=== PATIENT | female | born 2005 | race Caucasian/White ===

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

== ENCOUNTER → 2024-05-27 13:07 | Outpatient (BNVA) | payer OTHER, SELFPAY | PROVIDERS: PCP Internal Medicine ==

== ENCOUNTER 2025-05-12 12:48 | Emergency (ER) | payer OTHER, SELFPAY ==
[2025-05-12 13:01] VITALS: BP 142/84; PULSE 81; RESP 16; TEMP 36.6; O2SAT 100; BMI 21.6
--- NOTE | 2025-05-12 13:04 | ED.GENADULT ---
HPI - General Adult General Chief complaint: Urogenital-Female Stated complaint: blood in urine Time Seen by Provider: 05/12/25 15:05 Source: patient, RN notes reviewed and old records reviewed Mode of arrival: ambulatory Limitations: no limitations History of Present Illness ED Provider: DL Dodd HPI narrative: 19-year-old female without significant medical history presents to the ED due to 2 days of painful urination, increased urinary frequency, with 1 day of visual blood in the urine and lower abdominal pain. Reports last menstrual period was 05/03/2025 and was normal in blood volume and duration for her. Denies increased vaginal discharge, nausea, vomiting, fevers, chills. MD complaint: dysuria, blood in urine. Related Data Previous Rx's ?Medication ?Instructions ?Recorded cefuroxime axetil 500 mg tablet 500 mg PO BID 5 days #10 tabs 05/12/25 Allergies Allergy/AdvReac Type Severity Reaction Status Date / Time No Known Allergies Allergy Verified 05/12/25 13:03 Review of Systems Review of Systems: CONST: Negative for fever, body aches and chills. HENT: Negative for neck pain/stiffness, headache, congestion, sore throat, swelling. EYES: Negative for discharge/pain or vision changes. RESP: Negative for cough/hemoptysis and shortness of breath. CV: Negative chest pain, difficulty breathing, palpitations. ABD: Negative nausea, vomiting. POS lower abd pain. : Negative blood in stool. POS increased urinary frequency with hematuria MUSC: Negative for muscle aches, edema. SKIN: Negative rash, lesions/sores. NEURO: Negative headache, dizziness, weakness. Yes all other systems are reviewed and are negative [facility] Social History Social History Smoked in Last 30 Days: No Use of substances other than those prescribed or required for medical reasons: No Advance Directives: No Advance Directives Information Provided: No Do you have a plan to hurt others: No Plan Patient : No Physical Exam ED Vital Signs: Vital Signs - 24 hr 05/12/25 13:01 05/12/25 15:18 Temperature 97.9 F Pulse Rate 81 80 Respiratory Rate 16 18 Blood Pressure 142/84 H 129/75 Pulse Oximetry 100 100 Oxygen Delivery Method Room Air Room Air BMI result Body Mass Index 21.6 GENERAL APPEARANCE: ?AxOx4, generally well-appearing, no acute distress. HEENT: ?NC, AT. MMM. EOMI, clear conjunctiva, oropharynx clear. NECK: ?Supple without lymphadenopathy.? No stiffness or restricted ROM. HEART:? Normal rate and regular rhythm, normal S1/S2, no m/r/g LUNGS:? CTAB, moving air well. No crackles or wheezes are heard. ABDOMEN: ?Soft, nondistended, no rigidity, negative Ramsey's sign, no rebound tenderness, mild TTP of suprapubic region BACK: No CVAT, no obvious deformity. EXTREMITIES: ?Without cyanosis, clubbing or edema. NEUROLOGICAL: ?Grossly nonfocal. Alert and oriented, moving all 4 extremities. Observed to ambulate with normal gait. Skin: ?Warm and dry without any rash. Course Course Course Narrative: Rapid medical examination performed in triage by Keila Camilo PA-C. Patient is a 19 year old assigned female at presenting to the emergency department with blood in urine and dysuria. Detailed physical exam and review of systems are deferred to the product manager financial services. Labs ordered. Patient placed back in the waiting room pending room availability and results. Medical Decision Making Medical Decision Making MDM Narrative: 19-year-old female without significant medical history presents to the ED due to 2 days of painful urination, increased urinary frequency, with 1 day of visual blood in the urine and lower abdominal pain. Reports last menstrual period was 05/03/2025 and was normal in blood volume and duration for her. Denies increased vaginal discharge, nausea, vomiting, fevers, chills. Patient states she is concerned for STI but does not have increased vaginal discharge. Patient states she does not want to be tested in the department today as she does not want to wait. I counseled patient [facility] she would like to be tested. She states she will follow up with them tomorrow and would like to go home at this time. Labs reveal leukocytosis of 11.4, H&H stable, no electrolyte abnormality, beta hCG negative UA reveals 3+ urine blood, 3+ leukocyte esterase, 11-20 urine RBCs, >50 WBC, with 0-2 squamous epithelial cells and no urine bacteria. Patient with 2 days of increased urinary frequency, dysuria, 1 day of hematuria, and lower abdominal pain. Patient afebrile, without CVA tenderness. UA consistent with UTI. We will treat with 5 day course of cefuroxime. I counseled patient that she should follow up with [facility] if she has concerns for STIs as she did not want to be tested in the department today. Patient states she has primary care provider that she can follow up with as well. Patient denies increased vaginal discharge at this time. I will provide patient with information [facility]. Differential Diagnosis Differential Diagnoses: The differential diagnosis associated with the presentation includes Pyelonephritis UTI STI Admission/Observation Consideration of admission/observation: Escalation of care including admission/observation considered Lab Data [facility] Lab Attestation statement: I reviewed the patient's lab results. 05/12/25 13:26 05/12/25 13:26 Labs: Lab Results 05/12/25 Range/Units 13:26 WBC 11.4 H (4.8-10.8) X10*3/uL RBC 4.70 (4.20-5.50) X10*6/uL Hgb 11.9 L (12.0-16.0) g/dl Hct 37.7 (37.0-47.0) % MCV 80.2 (80.0-98.0) fL MCH 25.3 L (27.0-33.0) pg MCHC 31.6 (31.0-35.0) g/dl RDW 14.6 (11.0-16.0) % Plt Count 389 (160-400) X10*3/uL MPV 8.8 L (9.4-12.3) fL Immature Gran % (Auto) 0.3 (0.0-0.4) % Neut % (Auto) 69.2 (45-73) % Lymph % (Auto) 21.7 (20-40) % [place] % (Auto) 8.2 (2-11) % Eos % (Auto) 0.3 (0-4) % Baso % (Auto) 0.3 (0-2) % Lymph # (Auto) 2.5 (1.2-4.9) X10*3/uL [place] # (Auto) 0.9 (0.1-1.2) X10*3/uL Eos # (Auto) 0.0 (0.0-0.4) X10*3/uL Baso # (Auto) 0.0 (0.0-0.2) X10*3/uL Abs Immat Gran (auto) 0.03 (0.00-0.03) X10*3/uL Absolute Neuts (auto) 7.9 (2.0-8.3) x10*3/uL Absolute Nucleated RBC 0.000 (0.0-0.012) X10*3/uL Nucleated RBC % (auto) 0.0 (0.0-0.2) /100WBC Sodium 140 (135-145) mmol/L Potassium 3.9 (3.3-5.1) mmol/L Chloride 106 (96-108) mmol/L Carbon Dioxide 25 (22-29) mmol/L Anion Gap 13 (12-20) BUN 12 (9-16) mg/dL Creatinine 0.58 (0.5-1.4) mg/dL Estim Creat Clear Calc 104.6 Estimated GFR > 60 Random Glucose 86 (60-115) mg/dL Calcium 9.4 (8.4-10.2) mg/dL Total Bilirubin 0.4 (0.0-1.0) mg/dL AST 24 (5-31) U/L ALT 12 (0-31) U/L Alkaline Phosphatase 68 (39-117) U/L Total Protein 7.6 (6.5-8.0) g/dL Albumin 4.7 (3.5-5.0) g/dL Beta HCG, Quant < 2 mIU/mL Urine Color Yellow Urine Appearance Clear Urine pH 7.0 (5.0-9.0) Ur Specific [place] 1.010 (1.005-1.025) Urine Protein Negative (Neg-Trace) mg/dL Urine Glucose (UA) Negative (Negative) mg/dL Urine Ketones Negative (Negative) mg/dL Urine Blood Large (3+) H (Negative) Urine Nitrite Negative (Negative) Ur Leukocyte Esterase Large (3+) H (Negative) Urine RBC 11-20 H (0-2) /HPF Urine WBC >50 H (0-5) /HPF Ur Squamous Epith Cells 0-2 (0-2) /HPF Urine Bacteria None Seen (None Seen) Hyaline Casts 0-2 (0-2) /LPF External Record Review External record reviewed: Inpatient record, Office record and Outpatient record Chronic Conditions Patient?s care impacted by: Other (No known medical history) Discharge Plan Discharge Clinical Impression: Urinary tract infection Patient Disposition: Home, Self-Care Additional Instructions: You were evaluated in the ED today due to increased urinary frequency, painful urination, and blood in the urine. Your blood work today showed an increased white blood cell count of 11.4. Your urinalysis was positive for blood with evidence of infection. You stated you were concerned for STIs however did not want to be tested in the department today. You will be prescribed a 5 day course of cefuroxime which is an antibiotic to cover for UTI. Please complete entire course of medication even if your symptoms resolve. I encourage [facility]/or your primary care doctor for further evaluation and testing for sexually transmitted infections. Please return to the emergency department if you experience fevers over 100.4?, worsening lower abdominal pain, worsening pain with urination, inability to urinate, or any new/worsening/concerning symptoms. Prescriptions: New cefuroxime axetil 500 mg tablet 500 mg PO BID 5 Days Qty: 10 0RF Print Language: Welsh
[2025-05-12 13:32] LABS: MANUAL DIFF FLAG NO
[2025-05-12 13:34] LABS: Appearance Urine Clear; Glucose Urine UA Negative (Negative); PH 7.0 (5.0-9.0); Specific Gravity - Urine 1.010 (1.005-1.025); UMIC TRIGGER UACC YES
[2025-05-12 13:35] LABS: Hematocrit 37.7 % (37.0-47.0); Hemoglobin 11.9 g/dl (12.0-16.0); Imm Gran Abs Auto 0.03 X10*3/uL (0.00-0.03); Imm Gran Pct Auto 0.3 % (0.0-0.4); Lymphocytes Absolute Auto 2.5 X10*3/uL (1.2-4.9); Mean Corpuscular HGB Conc 31.6 g/dl (31.0-35.0); Mean Corpuscular Hemoglobin 25.3 pg (27.0-33.0); Mean Corpuscular Volume 80.2 fL (80.0-98.0); NRBC Abs Auto 0.000 X10*3/uL (0.0-0.012); NRBC Pct Auto 0.0 /100WBC (0.0-0.2); Platelet Count 389 X10*3/uL (160-400); Red Blood Count 4.70 X10*6/uL (4.20-5.50); White Blood Count 11.4 X10*3/uL (4.8-10.8)
[2025-05-12 13:36] LABS: UACC Culture Trigger YES
[2025-05-12 13:57] LABS: Alanine Aminotransferase 12 U/L (0-31); Albumin Level 4.7 g/dL (3.5-5.0); Alkaline Phosphatase 68 U/L (39-117); Anion Gap 13 (12-20); Aspartate Amino Transferase 24 U/L (5-31); Blood Urea Nitrogen 12 mg/dL (9-16); Calcium 9.4 mg/dL (8.4-10.2); Carbon Dioxide 25 mmol/L (22-29); Chloride 106 mmol/L (96-108); Creatinine Clr Calc Pharmacy 104.6; Estimated Glomerular Filt Rate > 60; Potassium 3.9 mmol/L (3.3-5.1); Sodium 140 mmol/L (135-145); Total Protein 7.6 g/dL (6.5-8.0)
[2025-05-12 15:18] VITALS: BP 129/75; PULSE 80; RESP 18; O2SAT 100
--- NOTE | 2025-05-12 15:23 | PC.NURSE ---
19 F presents to ED with lower abdominal pain since yesterday and painful urination with some bleed in urine, pink tint per pt. Pt also states shes had some dizziness x 1 week. A+Ox4, calm, cooperative, ambulatory. Pt denies any CP or SOB. RR even and unlabored,
[2025-05-12 17:01] VITALS: BP 103/68; PULSE 79; RESP 18; TEMP -17.7; TEMP 0; O2SAT 100
== END 2025-05-12 17:02 | disposition home or self-care (01) ==
PROVIDERS: Physician Assistant Medical; Emergency Provider Emergency Medicine; PCP Internal Medicine
DX: N39.0 Urinary tract infection, site not specified (principal); R31.9 Hematuria, unspecified; R30.0 Dysuria; R35.0 Frequency of micturition; Z79.899 Other long term (current) drug therapy
CPT/HCPCS: 36415; 80053; 81001; 84702; 85025; 87086; 87088; 87186; 99283; 99284

== ENCOUNTER 2025-05-31 11:01 | Observation (INO) | payer OTHER, SELFPAY ==
--- NOTE | ~2025-05-31 | CT_ITS ---
CLINICAL HISTORY: L flank pain hx UTI ?pyelo CT abdomen and pelvis with contrast Comparison: None provided Findings: No consolidation or effusion. There is mild heterogeneity involving a portion of the upper pole of the right kidney. No calculus or hydronephrosis. Remaining abdominal organs are unremarkable. There are no calcified gallstones. There is moderate fecal retention within the colon. Desiccated appearance of fecal material within the distal colon and rectum. No bowel edema or evidence of bowel obstruction. Pelvic contents unremarkable. Normal appendix. No acute fracture. IMPRESSION: 1. Could consider mild pyelonephritis of the left kidney. 2. Moderate fecal retention within the colon with an appearance suggesting likely constipation. This document has been electronically signed by: Rekha Angel MD on 05/31/2025 15:03:24
[2025-05-31 11:05] VITALS: BP 148/72; PULSE 92; RESP 22; TEMP 36.6; O2SAT 100; BMI 16.8
--- NOTE | 2025-05-31 11:06 | ED_ITS ---
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 Patient was evaluated at our facility on 05/12/2025 due to painful urination and increased urinary frequency. She was diagnosed with a urinary tract infection and prescribed a 5 day course of Ceftin which she has since completed. She reports resolution of urinary symptoms. Now endorsing left flank pain x4 days. No radiation. She has trialing Tylenol at home without relief. No injury or trauma. LMP 05/04/25. Denies fever but endorses chills. Denies nausea or vomiting, constipation, diarrhea, vaginal bleeding or discharge. Related Data Allergies Allergy/AdvReac Type Severity Reaction Status Date / Time No Known Allergies Allergy Verified 05/31/25 11:09 Review of Systems 2 Review of Systems: Yes all other systems are reviewed and are negative PMFSH Past Medical History Attestation statement: The following information was validated with the patient. Source: old records reviewed and nursing notes reviewed Social History Social History Advance Directives: No Advance Directives Information Provided: Yes Patient : No Physical Exam ED Vital Signs: Vital Signs - 24 hr 05/31/25 11:05 Temperature 97.8 F Pulse Rate 92 Respiratory Rate 22 H Blood Pressure 148/72 H Pulse Oximetry 100 Oxygen Delivery Method Room Air BMI result Body Mass Index 16.8 hypertensive, tachcyardic, afebrile General: Well appearing, in no acute distress. Skin: Warm, dry, intact. No rashes or lesions. Head: Normocephalic, atraumatic. EENT: Hearing is intact b/l. Conjunctiva clear. Sclera is anicteric. PERRLA. EOM intact. Moist mucous membranes.? Cardiac: Chest wall symmetric. RRR Lungs: Normal respiratory effort without accessory muscle use. CTA bilaterally Abdomen: Soft, non-tender, non-distended. No rebound tenderness or guarding. Positive BS x4. +L CVAT Back: No midline spinous or paraspinal tenderness. No step off deformity. Ext: Upper and lower extremities atraumatic, without tenderness, deformity, swelling or erythema Neuro: AOx3. Normal speech Course Course Course Narrative: This is a rapid medical exam performed by Karen Wynn NP: Additional HPI, ROS, PE not included below will be deferred to primary provider. Patient is a 19y/o F presenting with complaint of back pain since Mon. Recently seen at treated for a UTI. Completed full course of abx. +LCVAT Plan: labs, UA Reevaluation(s) Reevaluation #1: CBC with leukocytosis to 11.1. No left shift. H&H stable. Chemistry without acute electrolyte abnormality requiring intervention. No ELBA. Liver function WNL. Lactic WNL. Urine showing trace blood, small leukocyte esterase, 11 to 20 WBCs, 1+ bacteria, 0-2 squamous epithelial cells consistent with UTI. However, improving when compared to UA on 05/12/2025. CT NG undetectable. CT abdomen/pelvis showing mild pyelonephritis of left kidney along with constipation. no bowel obstruction. > patient medicated with toradol and IVF with good affect however states pain is returning - will trial IV tylenol. > patient has now failed outpatient treatment of UTI with progression to pyelonephritis - discussed with hospitalist who has accepted patient admission to medicine. patient is agreeable with admission. she does not meet criteria for sepsis at this time. Medications Administered Generic Name Dose Route Start Last Admin Trade Name Freq PRN Reason Stop Dose Admin Ceftriaxone Sodium 1 gm 05/31/25 18:00 05/31/25 17:55 Ceftriaxone Sodium 1 Gm Vial IVPUSH 1 gm Q24H SONNY Administration Lactated Ringer's 1,000 mls @ 100 mls/hr 05/31/25 17:15 05/31/25 17:33 Lr IVCONT 100 mls/hr .Q10H SONNY Administration Polyethylene Glycol 17 gm 05/31/25 18:00 05/31/25 17:59 Polyethylene Glycol 3350 17 Gm Powd.Pack PO Not Given DAILY SONNY Discontinued Medications Generic Name Dose Route Start Last Admin Trade Name Freq PRN Reason Stop Dose Admin Sodium Chloride 1,000 mls @ 999 mls/hr 05/31/25 12:30 05/31/25 13:27 Ns IV 05/31/25 13:30 Infused .Q1H1M SONNY Infusion Acetaminophen 1,000 mg in 100 mls @ 400 mls/hr 05/31/25 15:43 05/31/25 16:04 Ofirmev IV 05/31/25 15:57 Infused ONCE ONE Infusion Iohexol 85 ml 05/31/25 12:38 05/31/25 12:39 Iohexol 350 Mg/Ml 100 Ml Infus..Btl IV 05/31/25 12:39 85 ml ONCE ONE Administration Ketorolac Tromethamine 15 mg 05/31/25 12:18 05/31/25 12:26 Ketorolac Tromethamine 15 Mg/Ml Vial IVPUSH 05/31/25 12:19 15 mg ONCE ONE Administration Medical Decision Making Medical Decision Making [facility] Narrative: 19 year old female presents to the ED today for evaluation of left flank pain x 4 days. Mildly tachypneic. Hypertensive. Afebrile, not tachycardic. She is generally well-appearing and in no acute distress. abdomen is soft, ND/NT, no rebound or guarding, active bsx4. +left CVAT. Differential diagnosis includes UTI, nephrolithiasis, pyelonephritis, ovarian cyst, PID, lumbar v thoracic MSK sprain/strain, spasm Plan for labs, UA, imaging, and re-evalaution. Differential Diagnosis Differential Diagnoses: The differential diagnosis associated with the presentation includes As above Admission/Observation Consideration of admission/observation: Escalation of care including admission/observation considered admitted to medicine for management of pyelonephritis Consult Healthcare Provider Management of the patient was discussed with: Hospitalist (damon chamorro) Lab Data [facility] Lab Attestation statement: I reviewed the patient's lab results. As above 05/31/25 11:15 05/31/25 11:15 Labs: Lab Results 05/31/25 05/31/25 05/31/25 Range/Units 11:15 12:22 13:26 WBC 11.1 H (4.8-10.8) X10*3/uL RBC 4.84 (4.20-5.50) X10*6/uL Hgb 12.0 (12.0-16.0) g/dl Hct 39.0 (37.0-47.0) % MCV 80.6 (80.0-98.0) fL MCH 24.8 L (27.0-33.0) pg MCHC 30.8 L (31.0-35.0) g/dl RDW 14.2 (11.0-16.0) % Plt Count 450 H (160-400) X10*3/uL MPV 8.5 L (9.4-12.3) fL Immature Gran % (Auto) 0.2 (0.0-0.4) % Neut % (Auto) 62.9 (45-73) % Lymph % (Auto) 26.0 (20-40) % [place] % (Auto) 10.0 (2-11) % Eos % (Auto) 0.5 (0-4) % Baso % (Auto) 0.4 (0-2) % Lymph # (Auto) 2.9 (1.2-4.9) X10*3/uL [place] # (Auto) 1.1 (0.1-1.2) X10*3/uL Eos # (Auto) 0.1 (0.0-0.4) X10*3/uL Baso # (Auto) 0.0 (0.0-0.2) X10*3/uL Abs Immat Gran (auto) 0.02 (0.00-0.03) X10*3/uL Absolute Neuts (auto) 7.0 (2.0-8.3) x10*3/uL Absolute Nucleated RBC 0.000 (0.0-0.012) X10*3/uL Nucleated RBC % (auto) 0.0 (0.0-0.2) /100WBC Sodium 143 (135-145) mmol/L Potassium 3.7 (3.3-5.1) mmol/L Chloride 108 (96-108) mmol/L Carbon Dioxide 22 (22-29) mmol/L Anion Gap 17 (12-20) BUN 9 (9-16) mg/dL Creatinine 0.59 (0.5-1.4) mg/dL Estim Creat Clear Calc 105.8 Estimated GFR > 60 Random Glucose 92 (60-115) mg/dL Lactic Acid 0.9 (0.5-2.0) mmol/L Calcium 9.5 (8.4-10.2) mg/dL Total Bilirubin 0.6 (0.0-1.0) mg/dL AST 25 (5-31) U/L ALT 17 (0-31) U/L Alkaline Phosphatase 90 (39-117) U/L Total Protein 8.2 H (6.5-8.0) g/dL Albumin 4.9 (3.5-5.0) g/dL Beta HCG, Quant < 2 mIU/mL Urine Color Yellow Urine Appearance Clear Urine pH 7.5 (5.0-9.0) Ur Specific [place] 1.015 (1.005-1.025) Urine Protein Trace (Neg-Trace) mg/dL Urine Glucose (UA) Negative (Negative) mg/dL Urine Ketones Negative (Negative) mg/dL Urine Blood Trace H (Negative) Urine Nitrite Negative (Negative) Ur Leukocyte Esterase Small (1+) H (Negative) Urine RBC 6-10 H (0-2) /HPF Urine WBC 11-20 (0-5) /HPF Ur Squamous Epith Cells 0-2 (0-2) /HPF Urine Bacteria 1+ (None Seen) Hyaline Casts 0-2 (0-2) /LPF Ur N gonorrhoeae DNA (PCR) NOT DETECTED (Not Detect.) Ur Chlamydia DNA (PCR) NOT DETECTED (Not Detect.) Independent Interpretation I performed an independent interpretation of an: CT Scan Interpretation: ct a/p without bowel obstruction Radiology Impression Discussion of test interpretation with radiology: I have reviewed the radiologist's reading. Radiologist Impression: Procedure(s): CT abdomen pelvis w IV con Accession Number(s): [id number] cc: [facility]; Bessie Basurto~ Report Number: [id number]: Total DLP = 286.00 mGy-cm Reason for Exam: L flank pain hx UTI ?pyelo CLINICAL HISTORY: L flank pain hx UTI ?pyelo CT abdomen and pelvis with contrast Comparison: None provided Findings: No consolidation or effusion. There is mild heterogeneity involving a portion of the upper pole of the right kidney. No calculus or hydronephrosis. Remaining abdominal organs are unremarkable. There are no calcified gallstones. There is moderate fecal retention within the colon. Desiccated appearance of fecal material within the distal colon and rectum. No bowel edema or evidence of bowel obstruction. Pelvic contents unremarkable. Normal appendix. No acute fracture. IMPRESSION: 1. Could consider mild pyelonephritis of the left kidney. 2. Moderate fecal retention within the colon with an appearance suggesting likely constipation. This document has been electronically signed by: Rekha Angel MD on 05/31/2025 15:03:24 Independent Historian Clinical information obtained from an independent historian. History obtained from or confirmed by: Parent (dad) External Record Review External record reviewed: Inpatient record Prescription Management I considered prescription management with: Pain Medication and Antibiotic Social Determinants Patient?s care significantly limited by Social Determinants of Health including: Other Social Determinant of Health Critical Care Time Critical Care Time Critical Care Time: Yes Total Critical Care Time: 33 Attestation: Critical care time in the amount of 33 minutes has been provided to the patient in terms of direct patient care, frequent reevaluation, consultation with hospitalist, review and interpretation of medical data and results, and management of potentially life-threatening conditions. This is all outside of any medical procedures. Discharge Plan Discharge Clinical Impression: Pyelonephritis Patient Disposition: Admitted As Inpatient
[2025-05-31 11:20] LABS: MANUAL DIFF FLAG NO
[2025-05-31 11:22] LABS: Hematocrit 39.0 % (37.0-47.0); Hemoglobin 12.0 g/dl (12.0-16.0); Imm Gran Abs Auto 0.02 X10*3/uL (0.00-0.03); Imm Gran Pct Auto 0.2 % (0.0-0.4); Lymphocytes Absolute Auto 2.9 X10*3/uL (1.2-4.9); Mean Corpuscular HGB Conc 30.8 g/dl (31.0-35.0); Mean Corpuscular Hemoglobin 24.8 pg (27.0-33.0); Mean Corpuscular Volume 80.6 fL (80.0-98.0); NRBC Abs Auto 0.000 X10*3/uL (0.0-0.012); NRBC Pct Auto 0.0 /100WBC (0.0-0.2); Platelet Count 450 X10*3/uL (160-400); Red Blood Count 4.84 X10*6/uL (4.20-5.50); White Blood Count 11.1 X10*3/uL (4.8-10.8)
[2025-05-31 11:28] LABS: Appearance Urine Clear; Glucose Urine UA Negative (Negative); PH 7.5 (5.0-9.0); Specific Gravity - Urine 1.015 (1.005-1.025); UMIC TRIGGER UACC YES
[2025-05-31 11:38] LABS: UACC Culture Trigger YES
[2025-05-31 12:02] LABS: Alanine Aminotransferase 17 U/L (0-31); Albumin Level 4.9 g/dL (3.5-5.0); Alkaline Phosphatase 90 U/L (39-117); Anion Gap 17 (12-20); Aspartate Amino Transferase 25 U/L (5-31); Blood Urea Nitrogen 9 mg/dL (9-16); Calcium 9.5 mg/dL (8.4-10.2); Carbon Dioxide 22 mmol/L (22-29); Chloride 108 mmol/L (96-108); Creatinine Clr Calc Pharmacy 105.8; Estimated Glomerular Filt Rate > 60; Potassium 3.7 mmol/L (3.3-5.1); Sodium 143 mmol/L (135-145); Total Protein 8.2 g/dL (6.5-8.0)
[2025-05-31] MEDS: iohexoL 350 MG/ML 100 ML INFUS..BTL 85 ML IV (12:39)
[2025-05-31 15:15] LABS: CT PCR Urine NOT DETECTED (Not Detect.); NG PCR Urine NOT DETECTED (Not Detect.)
--- NOTE | 2025-05-31 16:22 | HO.NURTONUR ---
19 yr old female admitted for Pyelonophritis. Pt comes to ED with c/o L flank pain x3 days. She reports she was treated for UTI 3 weeks ago an an Urgent Care. A&Ox3 VSS, afebrile. Independent feeds and ambulation. 22g to RAC IVF and IV Toradol given in ED.
--- NOTE | 2025-05-31 16:30 | PHA.MEDREC ---
Pharmacy Consult ? Medication Reconciliation Pharmacy has completed the medication reconciliation. Pt states she isn't taking any medications at this time.
--- NOTE | 2025-05-31 17:01 | PC.NURSE ---
belongings list completed filed in pt chart
[2025-05-31] MEDS: Lactated Ringers 1,000 ML 100 ML IVCONT (17:33)
--- NOTE | 2025-05-31 17:45 | PM.IMHP ---
History of Present Illness Date of Service: 05/31/25 Attending physician on admission: Papo Ames Chief Complaint: flank pain This is a 19-year-old female who presents to the emergency department with flank pain. She states that she was diagnosed with a urinary tract infection 2 weeks ago and she was prescribed Ceftin. She completed 5 day course of Ceftin and initially her symptoms improved. This past Monday however she began having left-sided flank pain with associated chills. She denies any fever, nausea, vomiting. But due to her persistent left-sided flank pain she presented to the emergency department today. In the emergency department she was afebrile, noted to have leukocytosis of 11.1. Renal function within normal limits. Lactic acid within normal limits. CT scan of the abdomen and pelvis showing pyelonephritis of the left kidney. She will be admitted for further management. Review of Systems Review of Systems: Yes all other systems are reviewed and are negative Constitutional: Constitutional: Reports chills and Denies fever(s) Gastrointestinal: Gastrointestinal: Denies nausea and Denies vomiting PMFSH Social History Advance Directives: No Advance Directives Information Provided: Yes Patient : No Meds Allergies Allergy/AdvReac Type Severity Reaction Status Date / Time No Known Allergies Allergy Verified 05/31/25 11:09 Active Medications: Current Medications Acetaminophen (Acetaminophen 325 Mg Tablet) 650 mg PO Q6H PRN PRN Reason: Pain, Mild 1-3,fever,headache Calcium Carbonate (Calcium Carbonate 750 Mg Tab.Chew) 750 mg PO Q4H PRN PRN Reason: Heartburn Ceftriaxone Sodium (Ceftriaxone Sodium 1 Gm Vial) 1 gm IVPUSH Q24H [facility] Lactated Ringer's (Lr) 1,000 mls @ 100 mls/hr IVCONT .Q10H [facility] Last Admin: 05/31/25 17:33 Dose: 100 mls/hr Magnesium Hydroxide (Milk Of Magnesia 30 Ml Oral.Susp) 30 ml PO DAILY PRN PRN Reason: Constipation Melatonin (Melatonin 3 Mg Tablet) 6 mg PO BEDTIME PRN PRN Reason: Insomnia Morphine Sulfate (Morphine Sulfate 4 Mg/Ml Cartridge) 2 mg IVPUSH Q4H PRN; Protocol PRN Reason: Pain, Severe (Pain Scale 7-10) Sodium Chloride (0.9 % Sodium Chloride Flush 3 Ml Syringe) 3 ml IVFLUSH QSHIFT SNONY Physical Exam Vital Signs and Narrative: Vital Signs: Last Vital Signs Temp 97.8 F 05/31/25 11:05 Pulse 92 05/31/25 11:05 Resp 22 H 05/31/25 11:05 BP 148/72 H 05/31/25 11:05 Pulse Ox 100 05/31/25 11:05 O2 Del Method Room Air 05/31/25 11:05 BMI result Body Mass Index 16.8 Const: General: cooperative, comfortable, alert and awake Nutritional Appearance: average body habitus Orientation/consciousness: patient oriented x3 Resp: Effort & Inspection: normal respiratory effort and able to speak in complete sentences : Other: left CVAT Neuro: General: patient oriented x3, moves all extremities and CN's II-XI intact bilaterally Results Labs 05/31/25 11:15 05/31/25 11:15 Labs: Laboratory Results - last 24 hr 05/31/25 05/31/25 05/31/25 11:15 12:22 13:26 MCV 80.6 MCH 24.8 L MCHC 30.8 L RDW 14.2 Plt Count 450 H MPV 8.5 L Immature Gran % (Auto) 0.2 Neut % (Auto) 62.9 Lymph % (Auto) 26.0 [place] % (Auto) 10.0 Eos % (Auto) 0.5 Baso % (Auto) 0.4 Lymph # (Auto) 2.9 [place] # (Auto) 1.1 Eos # (Auto) 0.1 Baso # (Auto) 0.0 Abs Immat Gran (auto) 0.02 Absolute Neuts (auto) 7.0 Absolute Nucleated RBC 0.000 Nucleated RBC % (auto) 0.0 Anion Gap 17 Estim Creat Clear Calc 105.8 Estimated GFR > 60 Random Glucose 92 Lactic Acid 0.9 Calcium 9.5 Total Bilirubin 0.6 AST 25 ALT 17 Alkaline Phosphatase 90 Total Protein 8.2 H Albumin 4.9 Beta HCG, Quant < 2 Urine Color Yellow Urine Appearance Clear Urine pH 7.5 Ur Specific [place] 1.015 Urine Protein Trace Urine Glucose (UA) Negative Urine Ketones Negative Urine Blood Trace H Urine Nitrite Negative Ur Leukocyte Esterase Small (1+) H Urine RBC 6-10 H Urine WBC 11-20 Ur Squamous Epith Cells 0-2 Urine Bacteria 1+ Hyaline Casts 0-2 Ur N gonorrhoeae DNA (PCR) NOT DETECTED Ur Chlamydia DNA (PCR) NOT DETECTED Assessment and Plan (1) Pyelonephritis: Status: Acute Plan This is a 19-year-old female with no significant past medical history who was recently diagnosed with UTI who returns with left flank pain found to have pyelonephritis Acute pyelonephritis IV ceftriaxone Follow repeat urine cultures, blood cultures Pain control Constipation Seen on CT scan Start bowel regimen DVT prophylaxis-low risk, encourage early ambulation Quality Stroke Does the patient have a stroke diagnosis?: No VTE Prior VTE?: No VTE Risk Level:: Medical - low VTE Device Contraindication: Treatment Not Indicated VTE Drug Contraindication: Treatment Not Indicated
[2025-05-31 19:26] VITALS: BP 116/60; PULSE 71; RESP 16; TEMP 36.6; O2SAT 100
[2025-05-31 21:06] VITALS: BP 125/57; PULSE 80; RESP 18; TEMP 36.2; O2SAT 98
[2025-05-31 22:20] VITALS: BMI 19.3
[2025-06-01] VITALS (7 sets, daily range): BP systolic 109–128; BP diastolic 56–75; PULSE 69–87; RESP 16–18; TEMP 36.1–36.9; O2SAT 98–99
[2025-06-01] MEDS: Lactated Ringers 1,000 ML 100 ML IVCONT ×2 (03:35→18:04)
[2025-06-01 06:17] LABS: Hematocrit 31.9 % (37.0-47.0); Hemoglobin 9.9 g/dl (12.0-16.0); Mean Corpuscular HGB Conc 31.0 g/dl (31.0-35.0); Mean Corpuscular Hemoglobin 24.7 pg (27.0-33.0); Mean Corpuscular Volume 79.6 fL (80.0-98.0); NRBC Abs Auto 0.000 X10*3/uL (0.0-0.012); NRBC Pct Auto 0.0 /100WBC (0.0-0.2); Platelet Count 365 X10*3/uL (160-400); Red Blood Count 4.01 X10*6/uL (4.20-5.50); White Blood Count 9.2 X10*3/uL (4.8-10.8)
[2025-06-01 06:54] LABS: Anion Gap 10 (12-20); Blood Urea Nitrogen 10 mg/dL (9-16); Carbon Dioxide 25 mmol/L (22-29); Chloride 110 mmol/L (96-108); Creatinine Clr Calc Pharmacy 140.2; Estimated Glomerular Filt Rate > 60; Potassium 3.5 mmol/L (3.3-5.1); Sodium 141 mmol/L (135-145)
[2025-06-01 07:37] LABS: Calcium 8.5 mg/dL (8.4-10.2)
[2025-06-01 08:14] LABS: Iron 22 mcg/dL (30-160); Percent Iron Saturation 9 % (15-50); Total Iron Binding Capacity 257 mcg/dL (228-428); Unsaturated Iron Binding 235 ug/dL
[2025-06-01 08:30] LABS: Ferritin 8 ng/mL (10-122)
--- NOTE | 2025-06-01 10:37 | HO.PM.IMPN ---
Subjective Subjective Date of Service: 06/01/25 Interval History: Seen and examined this morning Follow-up for pyelonephritis Patient reports ongoing left-sided flank pain. Denies fever or chills Review of Systems Review of Systems: Yes all other systems are reviewed and are negative Constitutional Constitutional: Denies chills and Denies fever(s) Physical Exam Vital Signs: Vital Signs: Last Vital Signs Temp 97.4 F 06/01/25 07:52 Pulse 69 06/01/25 07:52 Resp 18 06/01/25 07:52 BP 109/56 L 06/01/25 07:52 Pulse Ox 99 06/01/25 07:52 O2 Del Method Room Air 06/01/25 07:52 BMI result Body Mass Index 19.3 Const: General: cooperative, comfortable, alert and awake Nutritional Appearance: average body habitus Orientation/consciousness: patient oriented x3 Resp: Effort & Inspection: normal respiratory effort and able to speak in complete sentences : Other: left CVAT Neuro: General: patient oriented x3, moves all extremities and CN's II-XI intact bilaterally Objective Data Active Medications Acetaminophen (Acetaminophen 325 Mg Tablet) 650 mg PO Q6H PRN PRN Reason: Pain, Mild 1-3,fever,headache Last Admin: 05/31/25 23:33 Dose: 650 mg Documented By: MEGAN Calcium Carbonate (Calcium Carbonate 750 Mg Tab.Chew) 750 mg PO Q4H PRN PRN Reason: Heartburn Ceftriaxone Sodium (Ceftriaxone Sodium 1 Gm Vial) 1 gm IVPUSH Q24H [facility] Last Admin: 05/31/25 17:55 Dose: 1 gm Documented By: LISA Docusate Sodium (Docusate Sodium 100 Mg Capsule) 100 mg PO BID [facility] Last Admin: 06/01/25 08:09 Dose: 100 mg Documented By: TREVER Lactated Ringer's (Lr) 1,000 mls @ 100 mls/hr IVCONT .Q10H [facility] Last Admin: 06/01/25 03:35 Dose: 100 mls/hr Documented By: KLAUDIA Ketorolac Tromethamine (Ketorolac Tromethamine 15 Mg/Ml Vial) 15 mg IVPUSH Q6H PRN PRN Reason: Pain, Severe (Pain Scale 7-10) Magnesium Hydroxide (Milk Of Magnesia 30 Ml Oral.Susp) 30 ml PO DAILY PRN PRN Reason: Constipation Melatonin (Melatonin 3 Mg Tablet) 6 mg PO BEDTIME PRN PRN Reason: Insomnia Morphine Sulfate (Morphine Sulfate 4 Mg/Ml Cartridge) 2 mg IVPUSH Q4H PRN; Protocol PRN Reason: Pain, Severe (Pain Scale 7-10) Last Admin: 06/01/25 10:25 Dose: 2 mg Documented By: RAGHAV Polyethylene Glycol (Polyethylene Glycol 3350 17 Gm Powd.Pack) 17 gm PO DAILY [facility] Last Admin: 06/01/25 08:09 Dose: 17 gm Documented By: TREVER Sodium Chloride (0.9 % Sodium Chloride Flush 3 Ml Syringe) 3 ml IVFLUSH QSHIFT [facility] Last Admin: 06/01/25 08:10 Dose: Not Given Documented By: TREVER Non-Admin Reason: IV Running Labs 06/01/25 05:51 06/01/25 05:51 Labs: Laboratory Results - last 24 hr 05/31/25 05/31/25 05/31/25 11:15 12:22 13:26 MCV 80.6 MCH 24.8 L MCHC 30.8 L RDW 14.2 Plt Count 450 H MPV 8.5 L Immature Gran % (Auto) 0.2 Neut % (Auto) 62.9 Lymph % (Auto) 26.0 [place] % (Auto) 10.0 Eos % (Auto) 0.5 Baso % (Auto) 0.4 Lymph # (Auto) 2.9 [place] # (Auto) 1.1 Eos # (Auto) 0.1 Baso # (Auto) 0.0 Abs Immat Gran (auto) 0.02 Absolute Neuts (auto) 7.0 Absolute Nucleated RBC 0.000 Nucleated RBC % (auto) 0.0 Anion Gap 17 Estim Creat Clear Calc 105.8 Estimated GFR > 60 Random Glucose 92 Lactic Acid 0.9 Calcium 9.5 Iron TIBC % Saturation Unsat Iron Binding Ferritin Total Bilirubin 0.6 AST 25 ALT 17 Alkaline Phosphatase 90 Total Protein 8.2 H Albumin 4.9 Beta HCG, Quant < 2 Urine Color Yellow Urine Appearance Clear Urine pH 7.5 Ur Specific [place] 1.015 Urine Protein Trace Urine Glucose (UA) Negative Urine Ketones Negative Urine Blood Trace H Urine Nitrite Negative Ur Leukocyte Esterase Small (1+) H Urine RBC 6-10 H Urine WBC 11-20 Ur Squamous Epith Cells 0-2 Urine Bacteria 1+ Hyaline Casts 0-2 Ur N gonorrhoeae DNA (PCR) NOT DETECTED Ur Chlamydia DNA (PCR) NOT DETECTED 06/01/25 05:51 MCV 79.6 L MCH 24.7 L MCHC 31.0 RDW 14.0 Plt Count 365 MPV 8.7 L Immature Gran % (Auto) Neut % (Auto) Lymph % (Auto) [place] % (Auto) Eos % (Auto) Baso % (Auto) Lymph # (Auto) [place] # (Auto) Eos # (Auto) Baso # (Auto) Abs Immat Gran (auto) Absolute Neuts (auto) Absolute Nucleated RBC 0.000 Nucleated RBC % (auto) 0.0 Anion Gap 10 L Estim Creat Clear Calc 140.2 Estimated GFR > 60 Random Glucose 96 Lactic Acid Calcium 8.5 D Iron 22 L TIBC 257 % Saturation 9 L Unsat Iron Binding 235 Ferritin 8 L Total Bilirubin AST ALT Alkaline Phosphatase Total Protein Albumin Beta HCG, Quant Urine Color Urine Appearance Urine pH Ur Specific [place] Urine Protein Urine Glucose (UA) Urine Ketones Urine Blood Urine Nitrite Ur Leukocyte Esterase Urine RBC Urine WBC Ur Squamous Epith Cells Urine Bacteria Hyaline Casts Ur N gonorrhoeae DNA (PCR) Ur Chlamydia DNA (PCR) Assessment and Plan (1) Pyelonephritis: Status: Acute Plan This is a 19-year-old female with no significant past medical history who was recently diagnosed with UTI who returns with left flank pain found to have pyelonephritis Acute pyelonephritis continue IV ceftriaxone Follow repeat urine cultures, blood cultures Pain control Constipation Seen on CT scan Start bowel regimen iron deficiency anemia started menstruating iron level low start po iron supplementation outpatient follow up with PCP DVT prophylaxis-low risk, encourage early ambulation Quality Stroke Does the patient have a stroke diagnosis?: No VTE Prior VTE?: No VTE Risk Level:: Medical - low VTE Device Contraindication: Treatment Not Indicated VTE Drug Contraindication: Treatment Not Indicated
--- NOTE | 2025-06-01 10:55 | MHC.CM.PN ---
PT LIVES WITH PARENTS WILL NOT NEED SERVICES IS INDEPEDENT HAS A RIDE DC PLAN HOME N/S
[2025-06-02] MEDS: Lactated Ringers 1,000 ML 100 ML IVCONT ×2 (02:59→13:58)
[2025-06-02 03:29] VITALS: BP 126/68; PULSE 85; RESP 18; TEMP 36.6; O2SAT 98
[2025-06-02 08:00] VITALS: BP 120/70; PULSE 78; RESP 18; TEMP 36.1; O2SAT 98
[2025-06-02] MEDS: Ferrous Sulfate 324 MG TABLET.DR PO (08:06)
--- NOTE | 2025-06-02 11:19 | HO.PM.IMPN ---
Subjective Subjective Date of Service: 06/02/25 Review of Systems Follow up pyelonephritis Denies nausea, vomiting, diarrhea Patient is still having trouble with pain control requiring IV narcotics Urine culture still pending Physical Exam Exam: Exam: Appearing in no acute distress lung sounds are clear to auscultation heart regular rate rhythm, clear S1, S2 positive bowel sounds, abdomen is soft, Left CVA tenderness neuro patient is alert x3, no focal deficits Vital Signs: Vital Signs: Last Vital Signs Temp 96.9 F 06/02/25 08:00 Pulse 78 06/02/25 08:00 Resp 18 06/02/25 08:00 BP 120/70 06/02/25 08:00 Pulse Ox 98 06/02/25 08:00 O2 Del Method Room Air 06/02/25 08:00 BMI result Body Mass Index 19.3 Objective Data Active Medications Acetaminophen (Acetaminophen 325 Mg Tablet) 650 mg PO Q6H PRN PRN Reason: Pain, Mild 1-3,fever,headache Last Admin: 05/31/25 23:33 Dose: 650 mg Documented By: MEGAN Calcium Carbonate (Calcium Carbonate 750 Mg Tab.Chew) 750 mg PO Q4H PRN PRN Reason: Heartburn Ceftriaxone Sodium (Ceftriaxone Sodium 1 Gm Vial) 1 gm IVPUSH Q24H [facility] Last Admin: 06/01/25 18:04 Dose: 1 gm Documented By: TREVER Docusate Sodium (Docusate Sodium 100 Mg Capsule) 100 mg PO BID [facility] Last Admin: 06/02/25 08:06 Dose: 100 mg Documented By: HARRIET Ferrous Sulfate (Ferrous Sulfate 324 Mg Tablet.Dr) 324 mg PO DAILY [facility] Last Admin: 06/02/25 08:06 Dose: 324 mg Documented By: HARRIET Lactated Ringer's (Lr) 1,000 mls @ 100 mls/hr IVCONT .Q10H [facility] Last Admin: 06/02/25 02:59 Dose: 100 mls/hr Documented By: SHONDA Ketorolac Tromethamine (Ketorolac Tromethamine 15 Mg/Ml Vial) 15 mg IVPUSH Q6H PRN PRN Reason: Pain, Moderate(Pain Scale 4-6) Last Admin: 06/02/25 08:10 Dose: 15 mg Documented By: HO.LAPOINM Magnesium Hydroxide (Milk Of Magnesia 30 Ml Oral.Susp) 30 ml PO DAILY PRN PRN Reason: Constipation Melatonin (Melatonin 3 Mg Tablet) 6 mg PO BEDTIME PRN PRN Reason: Insomnia Morphine Sulfate (Morphine Sulfate 4 Mg/Ml Cartridge) 2 mg IVPUSH Q4H PRN; Protocol PRN Reason: Pain, Severe (Pain Scale 7-10) Last Admin: 06/02/25 02:55 Dose: 2 mg Documented By: SHONDA Polyethylene Glycol (Polyethylene Glycol 3350 17 Gm Powd.Pack) 17 gm PO DAILY [facility] Last Admin: 06/02/25 08:06 Dose: 17 gm Documented By: HARRIET Sodium Chloride (0.9 % Sodium Chloride Flush 3 Ml Syringe) 3 ml IVFLUSH QSHIFT [facility] Last Admin: 06/02/25 08:06 Dose: Not Given Documented By: HARRIET Non-Admin Reason: IV Running Labs 06/01/25 05:51 06/01/25 05:51 Microbiology Microbiology Results: Microbiology 05/31/25 12:23 Blood Culture - Preliminary Blood - Venous No growth after 24 hours. 05/31/25 12:22 Blood Culture - Preliminary Blood - Venous No growth after 24 hours. 05/31/25 Unknown Urine Culture - Preliminary Urine clean catch - Clean Catch Midstream Culture in progress. Assessment and Plan (1) Pyelonephritis: Status: Acute Plan 19-year-old female with no significant past medical history who was recently diagnosed with UTI who returned with left flank pain found to have pyelonephritis Acute pyelonephritis continue IV ceftriaxone urine cultures pending negative blood cultures Pain control Constipation Seen on CT scan Start bowel regimen iron deficiency anemia started menstruating iron level low start po iron supplementation outpatient follow up with PCP DVT prophylaxis-low risk, encourage early ambulation Patient still requiring IV pain control. Urine cx is also pending which will be needed to treat patient appropriately Quality Stroke Does the patient have a stroke diagnosis?: No VTE Prior VTE?: No VTE Risk Level:: Medical - low VTE Device Contraindication: Treatment Not Indicated VTE Drug Contraindication: Treatment Not Indicated
[2025-06-02 16:00] VITALS: BP 137/69; PULSE 72; RESP 19; TEMP 36.6; O2SAT 98
[2025-06-02 20:00] VITALS: BP 123/70; PULSE 68; RESP 19; TEMP 36.5; O2SAT 99
[2025-06-03] VITALS: BP 115/71; PULSE 70; RESP 14; TEMP 36.3; O2SAT 99
[2025-06-03 03:11] VITALS: BP 106/55; PULSE 76; RESP 14; TEMP 36.3; O2SAT 99
[2025-06-03 07:34] VITALS: BP 110/61; PULSE 75; RESP 18; TEMP 36.4; O2SAT 97
[2025-06-03] MEDS: Ferrous Sulfate 324 MG TABLET.DR PO (08:31)
--- NOTE | 2025-06-03 09:08 | PM.DS ---
DS: Providers Provider Date of Service: 06/03/25 Date of admission: 05/31/25 15:38 Date of discharge: 06/03/25 Primary care physician: Yareli Hong DS: Diagnosis Discharge Diagnosis (1) Pyelonephritis: Status: Acute DS: Summary Hospital Course Hospital Course: History and physical as per admitting provider. This is a 19-year-old female who presents to the emergency department with flank pain. She states that she was diagnosed with a urinary tract infection 2 weeks ago and she was prescribed Ceftin. She completed 5 day course of Ceftin and initially her symptoms improved. This past Monday however she began having left-sided flank pain with associated chills. She denies any fever, nausea, vomiting. But due to her persistent left-sided flank pain she presented to the emergency department today. In the emergency department she was afebrile, noted to have leukocytosis of 11.1. Renal function within normal limits. Lactic acid within normal limits. CT scan of the abdomen and pelvis showing pyelonephritis of the left kidney. She will be admitted for further management. 19-year-old woman treated for acute pyelonephritis. Treated with IV ceftriaxone, pain control. Urine culture came back Staphylococcus saprophyticus. She will be treated with doxycycline for 5 days for total of 7 day treatment. She also requested pain medication but she. She will be sent home with 3 days of oxycodone and 4 days of high-dose ibuprofen. Constipation. Continue bowel regimen at home Iron-deficiency anemia. Started on p.o. iron supplementation which can lead to constipation. Time Attestation Discharge Coordination Time (in mins): 45 Quality: Safe Use of Opioids Does Pt have an Active Cancer Diagnosis on the Problem List?: No Quality: Stroke Does the patient have a stroke diagnosis?: No Physical Exam Exam: Exam: Appearing in no acute distress head is normocephalic atraumatic eyes pupils are PERRLA sclera is anicteric mouth throat mucous membranes are intact and moist neck is supple no lymphadenopathy, no JVD noted lung sounds are clear to auscultation heart regular rate rhythm, clear S1, S2 positive bowel sounds, abdomen is soft, nontender neuro patient is alert x3, no focal deficits Vital Signs: Vital Signs: Last Vital Signs Temp 97.5 F 06/03/25 07:34 Pulse 75 06/03/25 07:34 Resp 18 06/03/25 07:34 BP 110/61 06/03/25 07:34 Pulse Ox 97 06/03/25 07:34 O2 Del Method Room Air 06/03/25 07:34 BMI result Body Mass Index 19.3 DS: Data Data Completed and Pending Labs on day of discharge: Preliminary micro results at discharge 05/31/25 12:22 Blood Culture - Preliminary Blood - Venous No growth after 48 hours. 05/31/25 12:23 Blood Culture - Preliminary Blood - Venous No growth after 48 hours. Discharge Plan Discharge Anticipated Discharge Date/Time: 06/03/25 09:04 Patient Disposition: Home, Self-Care Discharge Diagnosis: Pyelonephritis Staphylococcus saprophyticus UTI Iron-deficiency anemia Constipation Referrals: Group,[facility] [Primary Care Provider, Primary Care] - 1 Week Discharge Medications: New doxycycline monohydrate 100 mg Capsule 100 mg PO Q12H Qty: 10 0RF ibuprofen 800 mg tablet 800 mg PO Q8H PRN (Reason: pain) Qty: 12 0RF oxycodone 5 mg tablet 5 mg PO Q8H PRN (Reason: pain) Qty: 9 0RF Rx Instructions: Partial Fill upon patient request. ferrous sulfate 324 mg (65 mg iron) Tablet,Delayed Release (Dr/Ec) 324 mg PO DAILY Qty: 60 0RF docusate sodium [Col-Rite] 100 mg capsule 100 mg PO BID Qty: 60 0RF polyethylene glycol 3350 [ClearLax] 17 gram/dose powder 17 g PO DAILY Qty: 119 0RF Discharge Orders: Discharge Order (Routine); Ordered 06/03/25 Ordered By: Zora Wilkes Diet: Advance to usual diet Activity on Discharge: As tolerated Stand Alone Forms: Patient Portal Discharge page Print Language: Amharic Care Plan Goals: Complete dose of antibiotics May take pain medication as needed Health Concerns: Pyelonephritis Staphylococcus saprophyticus UTI Iron-deficiency anemia Constipation Plan of Treatment: Follow up with primary care provider as needed Take all medications as prescribed Assessment: See discharge summary
--- NOTE | 2025-06-03 09:54 | MHC.CM.PN ---
DP: PT HAS BEEN MEDICALLY CLEARED FOR DC HOME, NO SERVICES. PT HAS OWN RIDE HOME.
== END 2025-06-03 10:03 | disposition home or self-care (01) ==
LOC: HO.ED 12:01 → HO.EDOVER 15:41 → HO.S3 19:32
PROVIDERS: Physician Assistant Medical; Registered Nurse Emergency; Admitting Provider Physician Assistant Medical; Emergency Provider Emergency Medicine; Visit Provider Nurse Practitioner Acute Care
DX: N39.0 Urinary tract infection, site not specified (principal); B95.7 Other staphylococcus as the cause of diseases classified elsewhere; N12 Tubulo-interstitial nephritis, not specified as acute or chronic; R10.9 Unspecified abdominal pain; R06.82 Tachypnea, not elsewhere classified; I10 Essential (primary) hypertension; K59.00 Constipation, unspecified; D50.9 Iron deficiency anemia, unspecified; Z87.440 Personal history of urinary (tract) infections
CPT/HCPCS: 36415; 74177; 80048; 80053; 81001; 82728; 83540; 83605; 84702; 85025; 85027; 87040; 87086; 87088; 87186; 87491; 87591; 96361; 96374; 96375; 96376; 99221; 99285; J0131; J0696; J1885; J2270; J7120; Q9967

== ENCOUNTER → 2025-05-31 12:11 | Outpatient (BNV) | payer OTHER, SELFPAY | PROVIDERS: Admitting Provider Physician Assistant Medical; Emergency Provider Emergency Medicine; Visit Provider Radiology Diagnostic Radiology | DX: R10.A2 Flank pain, left side (principal) | CPT/HCPCS: 74177 ==

== ENCOUNTER → 2025-05-31 15:38 | Outpatient (BNV) | payer OTHER, SELFPAY | PROVIDERS: Admitting Provider Physician Assistant Medical; Emergency Provider Emergency Medicine; Visit Provider Physician Assistant Medical | DX: N12 Tubulo-interstitial nephritis, not specified as acute or chronic (principal) | CPT/HCPCS: 99223; 99232 ==

== ENCOUNTER 2025-07-29 04:05 | Emergency (ER) | payer OTHER, SELFPAY ==
--- NOTE | 2025-07-29 04:10 | ECG_ITS ---
Test Reason : chest pain Blood Pressure : */* mmHG Vent. Rate : 79 BPM Atrial Rate : 79 BPM P-R Int : 112 ms QRS Dur : 90 ms QT Int : 382 ms P-R-T Axes : 54 75 55 degrees QTcB Int : 438 ms Normal sinus rhythm Normal ECG No previous ECGs available Referred By: Generic ED Physician Electronically Signed By: Ricky Tran
[2025-07-29 04:21] VITALS: BP 130/82; PULSE 79; RESP 18; TEMP 36.6; O2SAT 98; BMI 22.2
--- NOTE | 2025-07-29 04:26 | ED_ITS ---
HPI - General Adult General Chief complaint: General Medical Stated complaint: abd and chest pain Time Seen by Provider: 07/29/25 04:13 Source: patient Mode of arrival: ambulatory Limitations: no limitations History of Present Illness ED Provider: Dr. Maura Sadler HPI narrative: 19-year-old female presents with sudden onset epigastric/mid-chest pain that began around 0300 this morning and woke her from sleep. She describes the pain as ?really, really bad? stabbing pain located in the mid-chest/epigastric region with radiation to the back. Pain is intermittent. Associated symptoms include nausea without vomiting. She denies fever, cough, dysuria, or recent illness. Denies being around anyone else who is sick. Appetite is chronically poor; dinner yesterday consisted only of a croissant and hanks. Last bowel movement was approximately one week ago and she endorses a history of constipation. Last menstrual period was ?around July 03.? Denies vaginal bleeding or discharge. She had a kidney infection in May that resolved after antibiotics. No current daily medications. Previously took iron for anemia but not currently. No known drug allergies. Related Data Previous Rx's ?Medication ?Instructions ?Recorded docusate sodium 100 mg capsule 100 mg PO BID constipat ion #60 06/03/25 (Col-Rite) caps doxycycline monohydrate 100 mg 100 mg PO Q12H #10 caps 06/03/25 capsule ferrous sulfate 324 mg (65 mg 324 mg PO DAILY #60 tabs 06/03/25 iron) tablet,delayed release ibuprofen 800 mg tablet 800 mg PO Q8H PRN pain #12 t abs 06/03/25 oxycodone 5 mg tablet 5 mg PO Q8H PRN pain #9 tabs 06/03/25 polyethylene glycol 3350 17 17 g PO DAILY constipation #119 06/03/25 gram/dose oral powder (ClearLax) grams dicyclomine 20 mg tablet 20 mg PO TID #10 tabs omeprazole 20 mg capsule,delayed 20 mg PO DAILY #30 ca ps 07/29/25 release ondansetron 4 mg disintegrating 4 mg PO Q8H PRN nausea and 07/29/25 tablet vomiting #10 tabs Allergies Allergy/AdvReac Type Severity Reaction Status Date / Time No Known Allergies Allergy Verified 07/29/25 04:25 Review of Systems 2 Review of Systems: as per HPI, full review of systems performed and negative but for the above mentioned pertinent positives and negatives. [facility] Social History Social History Patient Tobacco Use Status: Never used Tobacco Smoked in Last 30 Days: No e-Cigarette/Vaping Use: Never Used Second Hand Smoke Exposure: No Use of substances other than those prescribed or required for medical reasons: No Advance Directives: No Advance Directives Information Provided: Yes Patient : No service: No Physical Exam ED Exam Exam: GENERAL: Ill-Appearing, appears uncomfortable. SKIN: Normal skin color for ethnicity, warm, dry, no rashes noted. HEENT:? Normocephalic, atraumatic, no stridor, dry mucous membranes, dentition intact, EOMI. NECK: Soft, supple, full ROM, midline structures nontender, no step-offs, no deformities, no lymphadenopathy. CHEST: Heart regular rhythm, no murmurs, symmetric chest rise and fall. PULMONARY: Clear to auscultation bilaterally, diminished at the bases, no labored breathing, no wheezes/rhales/rhonchi. ABDOMINAL: Soft, nondistended, epigastric tenderness to palpation without rebound or guarding, positive bowel sounds in all quadrants. : Deferred. MUSCULOSKELETAL: Normal tone, full range of motion, no deformities, no peripheral edema. NEURO: Alert and oriented x3, CN II through XII intact, equal strength and sensation bilateral upper and lower extremities, no focal neurologic deficits.? PSYCHIATRIC: Flat affect, fluid speech, good eye contact and appropriate demeanor. Vital Signs: Vital Signs - 24 hr 07/29/25 04:21 Temperature 97.8 F Pulse Rate 79 Respiratory Rate 18 Blood Pressure 130/82 Pulse Oximetry 98 Oxygen Delivery Method Room Air BMI result Body Mass Index 22.2 Medications Administered Discontinued Medications Generic Name Dose Route Start Last Admin Trade Name Freq PRN Reason Stop Dose Admin Al Hydroxide/Mg Hydroxide 30 ml 07/29/25 05:07 07/29/25 05:19 Magnesium Hydrox/Alum Hydrox 30 Ml Oral.Susp PO 07/29/25 05:08 30 ml ONCE ONE Administration Dicyclomine HCl 20 mg 07/29/25 05:07 07/29/25 05:19 Dicyclomine Hcl 10 Mg Capsule PO 07/29/25 05:08 20 mg ONCE ONE Administration Lidocaine HCl 15 ml 07/29/25 05:07 07/29/25 05:19 Lidocaine Hcl Viscous 2 % 15 Ml Solution MUCOUS MEM 07/29/25 05:08 15 ml ONCE ONE Administration Ondansetron HCl 4 mg 07/29/25 05:07 07/29/25 05:19 Ondansetron Odt 4 Mg Tab.Rapdis TRANSLINGU 07/29/25 05:08 4 mg ONCE ONE Administration Medical Decision Making Medical Decision Making [facility] Narrative: 19-year-old female with acute epigastric pain, nausea, and chronic constipation. Differential diagnosis for this patient is broad.? It includes appendicitis, cholecystitis, bowel obstruction, diverticulitis, peptic ulcer disease/gastritis, pyelonephritis, vascular pathology, among many others.? A broad-based workup based on history and physical examination was obtained. ? Patient was given GI cocktail, Bentyl for pain control. ? Problem #1: Acute epigastric abdominal pain Assessment: Sudden onset stabbing epigastric/mid-chest pain with back radiation; differential includes gastritis, cholelithiasis/cholecystitis, pancreatitis, peptic ulcer disease, and other GI vs biliary causes. No current evidence of infection on CBC. Plan: - Pain management ? medication administered in ED. - Blood work is unremarkable. Renal function, liver function does not show evidence of obstructive pathway. Electrolytes normal. Pain improved after GI cocktail Problem #2: Chronic constipation Assessment: Baseline poor appetite and bowel movement only once weekly. Present pain may be contributing. Plan: - Discuss bowel regimen options once acute issue addressed. Using shared decision making, plan for discharge home to follow-up with primary care and/or specialist.? Patient understands and agrees with plan for discharge.? Discharged home in stable condition. Differential Diagnosis Differential Diagnoses: The differential diagnosis associated with the presentation includes (as above) Admission/Observation Consideration of admission/observation: Escalation of care including admission/observation considered Lab Data [facility] Lab Attestation statement: I reviewed the patient's lab results. 07/29/25 04:32 07/29/25 04:32 Labs: Lab Results 07/29/25 Range/Units 04:32 WBC 8.6 (4.8-10.8) X10*3/uL RBC 5.13 D (4.20-5.50) X10*6/uL Hgb 12.9 D (12.0-16.0) g/dl Hct 40.8 D (37.0-47.0) % MCV 79.5 L (80.0-98.0) fL MCH 25.1 L (27.0-33.0) pg MCHC 31.6 (31.0-35.0) g/dl RDW 14.2 (11.0-16.0) % Plt Count 425 H (160-400) X10*3/uL MPV 8.8 L (9.4-12.3) fL Immature Gran % (Auto) 0.1 (0.0-0.4) % Neut % (Auto) 34.8 L (45-73) % Lymph % (Auto) 53.8 H (20-40) % Garrett % (Auto) 9.6 (2-11) % Eos % (Auto) 1.2 (0-4) % Baso % (Auto) 0.5 (0-2) % Lymph # (Auto) 4.6 (1.2-4.9) X10*3/uL Garrett # (Auto) 0.8 (0.1-1.2) X10*3/uL Eos # (Auto) 0.1 (0.0-0.4) X10*3/uL Baso # (Auto) 0.0 (0.0-0.2) X10*3/uL Abs Immat Gran (auto) 0.01 (0.00-0.03) X10*3/uL Absolute Neuts (auto) 3.0 (2.0-8.3) x10*3/uL Absolute Nucleated RBC 0.000 (0.0-0.012) X10*3/uL Nucleated RBC % (auto) 0.0 (0.0-0.2) /100WBC Sodium 141 (135-145) mmol/L Potassium 3.3 (3.3-5.1) mmol/L Chloride 108 (96-108) mmol/L Carbon Dioxide 23 (22-29) mmol/L Anion Gap 13 (12-20) BUN 10 (9-16) mg/dL Creatinine 0.60 (0.5-1.4) mg/dL Estim Creat Clear Calc 101.2 Estimated GFR > 60 Random Glucose 93 (60-115) mg/dL Calcium 9.5 D (8.4-10.2) mg/dL Total Bilirubin 0.2 (0.0-1.0) mg/dL AST 19 (5-31) U/L ALT 15 (0-31) U/L Alkaline Phosphatase 74 (39-117) U/L Troponin I High Sens < 2.7 (<3.5-17.0) ng/L Total Protein 7.6 (6.5-8.0) g/dL Albumin 4.8 (3.5-5.0) g/dL Lipase 36 (8-78) U/L Beta HCG, Quant < 2 mIU/mL Influenza Type A (PCR) NEGATIVE (Negative) Influenza Type B (PCR) NEGATIVE (Negative) RSV RNA Qual (PCR) NEGATIVE (Negative) SARS-CoV-2 RNA (RT-PCR) NEGATIVE (Negative) Independent Interpretation I performed an independent interpretation of an: EKG Interpretation: My independent interpretation of the ECG reveals normal sinus rhythm with rate of 79, normal axis, normal intervals, no ST elevations or depressions to suggest ischemic changes, no previous for comparison External Record Review External record reviewed: Inpatient record Prescription Management I considered prescription management with: Pain Medication Social Determinants Patient?s care significantly limited by Social Determinants of Health including: Other Social Determinant of Health Discharge Plan Discharge Clinical Impression: Acute upper abdominal pain, Gastritis Patient Disposition: Home, Self-Care Instructions: Diet for Stomach Ulcers and Gastritis (ED) Additional Instructions: DIAGNOSIS & TREATMENT: You were seen in the Emergency Department for your abdominal pain. We performed blood work which did not reveal any acute abnormalities that would explain your symptoms. FURTHER CARE: We have not found any emergent physical exam or lab abnormalities that would require admission to the hospital today. Many people who come to the ER with abdominal pain do not leave with a specific diagnosis at the end of their visit. In the Emergency Department we try to make sure that there is no emergent problem that needs surgery or antibiotics right now. This does not mean that your evaluation is complete--please be sure to follow up with your regular doctor as additional testing as an outpatient may be indicated Please be certain to drink plenty of fluids over the next several. You should advance your diet as tolerated. You may wish to start with the BRAT diet (bananas, rice, applesauce, toast). WHEN YOU SHOULD BE SEEN NEXT: Please follow-up with your primary care provider within the next 2-3 days for reevaluation of your symptoms. WHEN TO RETURN TO THE ED: Monitor your symptoms closely and return to the emergency department immediately for any new/worsening symptoms, worsening abdominal pain, pain which changes location (particularly if it moved to the right lower quadrant), nausea, vomiting, blood in your stool, black/tarry stools, chest pain, shortness of breath, fevers, chills, night sweats, you are unable to arrange follow-up care, or any other concerning symptoms. Prescriptions: New dicyclomine 20 mg tablet 20 mg PO TID Qty: 10 0RF omeprazole 20 mg capsule,delayed release(DR/EC) 20 mg PO DAILY Qty: 30 0RF ondansetron 4 mg tablet,disintegrating 4 mg PO Q8H PRN (Reason: nausea and vomiting) Qty: 10 0RF No Action doxycycline monohydrate 100 mg Capsule 100 mg PO Q12H Qty: 10 0RF ibuprofen 800 mg tablet 800 mg PO Q8H PRN (Reason: pain) Qty: 12 0RF oxycodone 5 mg tablet 5 mg PO Q8H PRN (Reason: pain) Qty: 9 0RF Rx Instructions: Partial Fill upon patient request. ferrous sulfate 324 mg (65 mg iron) Tablet,Delayed Release (Dr/Ec) 324 mg PO DAILY Qty: 60 0RF docusate sodium [Col-Rite] 100 mg capsule 100 mg PO BID Qty: 60 0RF polyethylene glycol 3350 [ClearLax] 17 gram/dose powder 17 g PO DAILY Qty: 119 0RF Print Language: Frisian
[2025-07-29 04:42] LABS: MANUAL DIFF FLAG NO
[2025-07-29 04:44] LABS: Hematocrit 40.8 % (37.0-47.0); Hemoglobin 12.9 g/dl (12.0-16.0); Imm Gran Abs Auto 0.01 X10*3/uL (0.00-0.03); Imm Gran Pct Auto 0.1 % (0.0-0.4); Lymphocytes Absolute Auto 4.6 X10*3/uL (1.2-4.9); Mean Corpuscular HGB Conc 31.6 g/dl (31.0-35.0); Mean Corpuscular Hemoglobin 25.1 pg (27.0-33.0); Mean Corpuscular Volume 79.5 fL (80.0-98.0); NRBC Abs Auto 0.000 X10*3/uL (0.0-0.012); NRBC Pct Auto 0.0 /100WBC (0.0-0.2); Platelet Count 425 X10*3/uL (160-400); Red Blood Count 5.13 X10*6/uL (4.20-5.50); White Blood Count 8.6 X10*3/uL (4.8-10.8)
[2025-07-29 04:59] LABS: Alanine Aminotransferase 15 U/L (0-31); Albumin Level 4.8 g/dL (3.5-5.0); Alkaline Phosphatase 74 U/L (39-117); Anion Gap 13 (12-20); Aspartate Amino Transferase 19 U/L (5-31); Blood Urea Nitrogen 10 mg/dL (9-16); Calcium 9.5 mg/dL (8.4-10.2); Carbon Dioxide 23 mmol/L (22-29); Chloride 108 mmol/L (96-108); Creatinine Clr Calc Pharmacy 101.2; Estimated Glomerular Filt Rate > 60; Lipase 36 U/L (8-78); Potassium 3.3 mmol/L (3.3-5.1); Sodium 141 mmol/L (135-145); Total Protein 7.6 g/dL (6.5-8.0)
[2025-07-29 05:08] LABS: Troponin-I High Sensitivity < 2.7 ng/L (<3.5-17.0)
[2025-07-29] MEDS: Lidocaine HCl Viscous 2 % 15 ML SOLUTION MUCOUS MEM (05:19)
[2025-07-29] MEDS: Magnesium Hydrox/Alum Hydrox 30 ML ORAL.SUSP PO (05:19)
[2025-07-29 05:20] LABS: Resp Syncy Virus RNA Qual PCR NEGATIVE (Negative); SARS COV2 PCR INHOUSE NEGATIVE (Negative)
[2025-07-29 07:16] VITALS: BP 105/49; PULSE 65; RESP 16; TEMP 36.6; O2SAT 98
== END 2025-07-29 07:17 | disposition home or self-care (01) ==
PROVIDERS: Emergency Provider Emergency Medicine
DX: K29.70 Gastritis, unspecified, without bleeding (principal); K59.00 Constipation, unspecified; Z79.899 Other long term (current) drug therapy
CPT/HCPCS: 36415; 80053; 83690; 84484; 84702; 85025; 87637; 93005; 99283; 99284

== ENCOUNTER → 2025-07-29 04:10 | Outpatient (BNV) | payer OTHER, SELFPAY | PROVIDERS: Emergency Provider Emergency Medicine; Visit Provider Internal Medicine Cardiovascular Disease | DX: R07.9 Chest pain, unspecified (principal) | CPT/HCPCS: 93010 ==